=== PATIENT | male | born 1995 | race African-American/Black ===

== ENCOUNTER → 2021-11-12 | Outpatient (CLI) | payer BC ==
--- NOTE | 2021-11-12 12:49 | CA ---
Exercise Stress Test Report Name: Noah Pruett II Exam Date: 11/12/2021 09:18 Exam Location: [facility] Stress Ht (in): 70 Wt (lb): 280 BSA: 2.41 Ordering Phys: Satinder Tilley MD Referring Phys: claudia,, Technologist: Marjan Woodall Age: 26 Gender: M : 1995 Procedure CPT: Indications: R07.9 CHEST PAIN ICD-10 Codes: Patient History: CHEST PAIN Medications: NONE Meds past 24 hrs: Pretest Chest Pain: STRESS TEST Charly Protocol Exercise Duration (min:sec): 07:[address] Depressions (mm): Angina Score: Prajapati Score: Resting HR (bpm): 101 Peak HR (bpm): 184 Resting BP (mmHg): 135 / 74 Peak BP (mmHg): 171 / 63 MPHR: 196 Target HR: 167 % MPHR: 94 METS: 8.9 Total Dose: Peak Dose: Atropine: Double Product: 27885 BP Response: Stress Termination: Reached target heart rate Stress Symptoms: NO SYMPTOMS Stress Summary: ECG ANALYSIS Resting ECG: Stress ECG: CONCLUSIONS Baseline heart rate 84 beats a minute, Baseline blood pressure 135/74 mmHg Baseline twelve-lead EKG showed sinus rhythm with early repolarization abnormality inferolaterally Patient exercised on a Charly protocol for up to 7 minutes Normal blood pressure response There is no ECG is for ischemia No arrhythmias noted Impression Low workload level achieved No ECG is for ischemia arrhythmia Dr. Avila Kurtz MD (Electronically Signed) Final Date: 12 Nov 2021 12:48
== END | disposition home or self-care (01) ==
LOC: RADNMMAIN 08:56
PROVIDERS: ATTEND Internal Medicine
DX: R07.9 Chest pain, unspecified (principal)
CPT/HCPCS: 93017